=== PATIENT | male | born 1965 | race Caucasian/White ===

== ENCOUNTER 2018-03-27 17:37 | Observation (INO) ==
--- NOTE | 2018-03-27 18:38 | Emergency Department Note ---
Disposition Clinical Impression: Epigastric pain, Atypical chest pain Disposition: Admitted As Inpatient Condition: Serious Referrals: Ric Leal MD [Primary Care Provider] - Forms: ED Satisfaction Letter, Work/School Release Time of Disposition: 22:03 General Adult HPI - General Chief complaint: ED Abdominal Pain Stated complaint: stomach pain Time Seen by Provider: 03/27/18 18:07 Source: patient Limitations: no limitations Nursing Notes Reviewed: Yes Vital Signs Reviewed: Yes - History of Present Illness HPI Narrative: Patient presents today with CC of: Epigastric pain Patient describes issue began around epigastric pain has been going on for 8 days. Patient states it started when he was at a cookout after lunch but did not really eat anything. He has had diarrhea just about every day for the last week. Sometimes he goes as many as 8 times per day. He has had intermittent severe pain in his abdomen that doubles him over according to his . Patient is not drinking alcohol. Patient has about a beer per week. But does not really drink very much patient's not had any sweating vomiting but he has had a fever last Saturday. He is also been having some fatigue. He has not had any blood in his stool. He has a renal transplant which he had done in 1998 both of his remaining kidneys are present. Current kidney transplant is in his right lower quadrant. He has not had any pain down there. Pain is all been in his epigastric area somewhat under the ribs. Patient had toast and peanut butter for lunch this afternoon. He is on multiple medications. 2 months ago they changed his cyclosporine medication otherwise he is on Y Phenytek 2 times a day cyclosporine, prednisone, carvedilol, lisinopril. 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 Patient was taken off Bactrim about 2 months ago. Patient has a history of transverse myelitis which caused him to have decrease sensation on the right side of his abdomen Pain Scale: 5 - Related Data Home Medications Medication Instructions Recorded Confirmed CycloSPORINE, Mod (Neoral) [Neoral] 75 mg PO BID 07/03/17 03/27/18 Mycophenolate Sodium [Myfortic] 720 mg PO BID 07/03/17 03/27/18 PredniSONE [Mari] 3 mg PO DAILY 07/03/17 03/27/18 Carvedilol 12.5 mg PO BID 03/27/18 03/27/18 Lisinopril [Zestril] 10 mg PO DAILY 03/27/18 03/27/18 Allergies Allergy/AdvReac Type Severity Reaction Status Date / Time No Known Allergies Allergy Verified 07/03/17 14:43 All systems ED: reviewed and negative except as stated. Review of Systems: As Per HPI Past Medical History - Past Medical History Medical history: Reports: other Psychiatric history: Reports: no psych history - Social History Smoking Status: Never smoker Smokeless Tobacco Status: No Alcohol use: Reports: rarely Drug use: Reports: none Physical Exam I have reviewed initial and available nurse's notes for the patient. The patient 's medications, allergies, and medical history was reviewed. Family, Social & Surg histories were reviewed and are not relevant except as noted above in the history of present illness, or below in the respective specific section. I have reviewed and agree with all vital signs synchronously available in EMR at the time of this dictation. Times documented are the time of computer entry, are not necessarily the time the event occurred. At least 10 systems reviewed with patient or surrogate during physical exam and are otherwise negative. Physical EXAM: General ~ Constitutional: Conscious & cooperative , generally healthy appearance Head: NCAT Eyes: Sclera white , conjunctiva clear , PERRL, non-icteric ENT : Nose with pink nasal mucosa , nares patent, non tender without bleeding Mouth - mucous membrane moist , pink , no lesions , no trismus Neck - no masses , supple , no cervical spinous process tenderness Pharynx - no exudate , no petechia or obvious lesions , no airway obstruction or stridor Hematologic ~ Lymphatic ~ Immunologic: Lymphadenopathy normal , no petechia , Skin color, nails and pulses unremarkable. Heart ~ Chest: Reg rate , nml Rhythm , nl S1/S2 , no MRG Lungs: Breath sounds equal , clear to auscultation bilaterally , no wheezing, no rales or rhonchi , no CVA tenderness Gastrointestinal ~ Abd: Soft & tender in epigastric area , BS + in 4 quads , No HSM or masses , no peritoneal signs, no rebound no guarding, no tenderness of the right side it renal transplant. GenitoUrinary: Deferred - patient states no pain in the lower abdomen and no genitourinary abnormalities denies testicular pain. Musculoskeletal ~ Back ~ Extremities: Warm and w/o clubbing , cyanosis , or edema. No point tenderness , good ROM of major joints Neurologic: Cranial nerves grossly intact, good muscle strength , attention good , cooperative , Alert and oriented x4 Psychiatric: Calm , Insight and mood appropriate , Skin: No rashes , good skin turgor , cap refill 2-3 seconds , warm and dry - General Limitations: no limitations General appearance: alert, in no apparent distress Course Vital Signs Temperature 97.8 F 03/27/18 18:04 Pulse Rate 66 03/27/18 18:04 Respiratory Rate 18 03/27/18 18:04 Blood Pressure 143/80 03/27/18 18:04 O2 Sat by Pulse Oximetry 100 03/27/18 18:04 Temperature 98.1 F 03/27/18 19:47 Pulse Rate 64 03/27/18 19:47 Respiratory Rate 18 03/27/18 18:04 Blood Pressure 162/78 03/27/18 19:47 O2 Sat by Pulse Oximetry 99 03/27/18 19:47 Oxygen Delivery Oxygen Delivery Room Air Medical Decision Making - MDM Narrative Medical decision making narrative: MDM: History and physical exam is consistent with - atypical CP epigastric pain DDx included multiple etiologies for the symptoms such as - atypical CP, pacreatitis,food poisoning, ACS, Pneumonia, pneumothorax, Gerd, AAA, PE XRAYS: cxr: No Acute CP disease ct scan - no bowel obstruction atrophied [place] kidneys no abnormalities noted on the transplanted kidneys no appendicitis no gallbladder inflammation or evidence of cholecystitis. Critical Care: None Condition and evaluation here was discussed in detail. Labwork, and test results were reviewed with the patient, I also discussed his case as well as medications lab work EKGs with network development coordinator/physician commission auditor at [facility] they did not feel this had anything to do with his renal transplant. I contacted Dr. Hurtado after discussing this with the patient patient is agreeable to admission to the hospital for observation and cardiac enzyme monitoring. Patient may ultimately need stress testing and a GI workup. - Lab Data Result diagrams: 03/27/18 18:50 03/27/18 18:50 Lab Results 03/27/18 03/27/18 03/27/18 Range/Units 18:36 18:50 18:50 WBC 7.2 (4.3-11.1) K/mcL RBC 3.66 L (4.19-5.50) M/mcL Hgb 11.2 L (12.9-16.9) g/dL Hct 33.0 L (37.5-50.1) % MCV 90.2 (83.0-100.0) fL MCH 30.6 (28.0-33.3) pg MCHC 33.9 (31.6-35.5) g/dL RDW 12.7 (11.5-14.5) % Plt Count 279 (140-400) K/mcL MPV 9.7 (9.4-12.4) fL Immature Gran % 0.3 (0-4) % Seg Neutrophils % 58.5 % Lymphocytes % 25.8 % Monocytes % 11.2 % Eosinophils % 3.8 % Basophils % 0.4 % Neutrophils # 4.2 (1.6-8.9) K/mcL Lymphocytes # 1.9 (0.6-4.6) K/mcL Monocytes # 0.8 (0.0-1.3) K/mcL Eosinophils # 0.3 (0.0-0.6) K/mcL Basophils # 0.0 (0.0-0.2) K/mcL Sodium 133 L (136-145) mEq/L Potassium 4.3 (3.5-5.1) mEq/L Chloride 109 H (98-107) mEq/L Carbon Dioxide 18 L (23-29) mEq/L BUN 32 H (6-20) mg/dL Creatinine 1.28 (0.70-1.30) mg/dL Est GFR ( Amer) > 60 (> 60) Est GFR (Non-Af Amer) 59 L (> 60) BUN/Creatinine Ratio 25 (6-26) Glucose 102 (70-105) mg/dL Calculated Osmolality 283 (280-300) Lactic Acid (0.5-2.2) mmol/L Calcium 9.5 (8.6-10.3) mg/dL Total Bilirubin 0.4 (0.3-1.0) mg/dL AST 18 (13-39) Units/L ALT 17 (7-52) Units/L Alkaline Phosphatase 55 (34-104) Units/L Troponin I < 0.03 (< 0.04) ng/mL Serum Total Protein 6.7 (6.4-8.9) g/dL Albumin 3.8 (3.5-5.7) g/dL Globulin 2.9 (2.4-3.5) g/dL Albumin/Globulin Ratio 1.3 (1.1-2.2) Lipase 87 H (11-82) Units/L Urine Color Yellow (Yellow) Urine Clarity Clear (Clear) Urine pH 5.5 (5.0-8.0) pH Units Ur Specific Gary 1.020 (1.010-1.025) Urine Protein 100 H (Neg-Trace) mg/dL Urine Glucose (UA) Normal (Normal) mg/dL Urine Ketones Negative (Negative) mg/dL Urine Blood Negative (Negative) Urine Nitrite Negative (Negative) Urine Bilirubin Negative (Negative) Urine Urobilinogen Normal (Normal) mg/dL Ur Leukocyte Esterase Negative (Negative) Urine Microscopic RBC 0-3 (0-3) per hpf Urine Microscopic WBC 0-3 (0-3) per hpf Urine Bacteria Few (None-Few) per hpf Ur Culture Indicated? NO (NO) 03/27/18 Range/Units 18:50 WBC (4.3-11.1) K/mcL RBC (4.19-5.50) M/mcL Hgb (12.9-16.9) g/dL Hct (37.5-50.1) % MCV (83.0-100.0) fL MCH (28.0-33.3) pg MCHC (31.6-35.5) g/dL RDW (11.5-14.5) % Plt Count (140-400) K/mcL MPV (9.4-12.4) fL Immature Gran % (0-4) % Seg Neutrophils % % Lymphocytes % % Monocytes % % Eosinophils % % Basophils % % Neutrophils # (1.6-8.9) K/mcL Lymphocytes # (0.6-4.6) K/mcL Monocytes # (0.0-1.3) K/mcL Eosinophils # (0.0-0.6) K/mcL Basophils # (0.0-0.2) K/mcL Sodium (136-145) mEq/L Potassium (3.5-5.1) mEq/L Chloride (98-107) mEq/L Carbon Dioxide (23-29) mEq/L BUN (6-20) mg/dL Creatinine (0.70-1.30) mg/dL Est GFR ( Amer) (> 60) Est GFR (Non-Af Amer) (> 60) BUN/Creatinine Ratio (6-26) Glucose (70-105) mg/dL Calculated Osmolality (280-300) Lactic Acid 0.7 (0.5-2.2) mmol/L Calcium (8.6-10.3) mg/dL Total Bilirubin (0.3-1.0) mg/dL AST (13-39) Units/L ALT (7-52) Units/L Alkaline Phosphatase (34-104) Units/L Troponin I (< 0.04) ng/mL Serum Total Protein (6.4-8.9) g/dL Albumin (3.5-5.7) g/dL Globulin (2.4-3.5) g/dL Albumin/Globulin Ratio (1.1-2.2) Lipase (11-82) Units/L Urine Color (Yellow) Urine Clarity (Clear) Urine pH (5.0-8.0) pH Units Ur Specific Gary (1.010-1.025) Urine Protein (Neg-Trace) mg/dL Urine Glucose (UA) (Normal) mg/dL Urine Ketones (Negative) mg/dL Urine Blood (Negative) Urine Nitrite (Negative) Urine Bilirubin (Negative) Urine Urobilinogen (Normal) mg/dL Ur Leukocyte Esterase (Negative) Urine Microscopic RBC (0-3) per hpf Urine Microscopic WBC (0-3) per hpf Urine Bacteria (None-Few) per hpf Ur Culture Indicated? (NO) - EKG Data EKG #1 EKG results narrative: EKG shows normal sinus rhythm with a ventricular rate of 60. ND interval 151. QRS duration 102. QTc 372. Patient has no acute injury pattern he does have some T-wave flattening in aVL and some slightly enlarged T waves in V3 V4 V5. No acute injury pattern is noted. Patient's potassium is normal.
[2018-03-27 18:58] LABS: Basophils % 0.4 %; Eosinophils # 0.3 K/mcL (0.0-0.6); Eosinophils % 3.8 %; Hemoglobin 11.2 g/dL (12.9-16.9); Immature Granulocytes % 0.3 % (0-4); Lymphocytes # 1.9 K/mcL (0.6-4.6); Lymphocytes % 25.8 %; Mean Corpuscular HGB Conc 33.9 g/dL (31.6-35.5); Mean Corpuscular Hemoglobin 30.6 pg (28.0-33.3); Mean Corpuscular Volume 90.2 fL (83.0-100.0); Mean Platelet Volume 9.7 fL (9.4-12.4); Monocytes # 0.8 K/mcL (0.0-1.3); Monocytes % 11.2 %; Neutrophils # 4.2 K/mcL (1.6-8.9); Platelet Count 279 K/mcL (140-400); Red Blood Count 3.66 M/mcL (4.19-5.50); Red Cell Distribution Width 12.7 % (11.5-14.5); Segmented Neutrophils % 58.5 %
[2018-03-27 19:15] LABS: Alanine Aminotransferase 17 Units/L (7-52); Albumin 3.8 g/dL (3.5-5.7); Albumin/Globulin Ratio 1.3 (1.1-2.2); Alkaline Phosphatase 55 Units/L (34-104); Aspartate Amino Transferase 18 Units/L (13-39); BUN/Creatinine Ratio 25 (6-26); Bilirubin,Total 0.4 mg/dL (0.3-1.0); Blood Urea Nitrogen 32 mg/dL (6-20); Calcium 9.5 mg/dL (8.6-10.3); Carbon Dioxide 18 mEq/L (23-29); Chloride 109 mEq/L (98-107); Globulin 2.9 g/dL (2.4-3.5); Glucose 102 mg/dL (70-105); Lipase 87 Units/L (11-82); Osmolality,Calculated 283 (280-300); Potassium 4.3 mEq/L (3.5-5.1); Sodium 133 mEq/L (136-145); Total Protein 6.7 g/dL (6.4-8.9); eGFR For African Americans > 60 (> 60); eGFR For Non-African Americans 59 (> 60)
[2018-03-27 19:21] LABS: Troponin I < 0.03 ng/mL (< 0.04)
[2018-03-27 20:36] LABS: Bilirubin,Urine Negative (Negative); Blood,Urine Negative (Negative); Clarity,Urine Clear (Clear); Color,Urine Yellow (Yellow); Glucose,Urine (UA) Normal (Normal); Ketones,Urine Negative (Negative); Leukocyte Esterase,Urine Negative (Negative); Nitrite,Urine Negative (Negative); PH,Urine 5.5 pH Units (5.0-8.0); Protein,Urine 100 mg/dL (Neg-Trace); Urobilinogen,Urine Normal (Normal)
[2018-03-27 20:38] LABS: Bacteria,Urine Few per hpf (None-Few); RBC,Urine 0-3 per hpf (0-3); WBC,Urine 0-3 per hpf (0-3)
[2018-03-27] MEDS ORDERED: Naloxone 0.4 MG/ML INJ IVP PRN (22:21)
[2018-03-28] MEDS: Aspirin 81 MG TAB.CHEW PO SCH ×2 (00:22→09:21)
[2018-03-28 04:32] LABS: Basophils % 0.5 %; Eosinophils # 0.3 K/mcL (0.0-0.6); Eosinophils % 4.6 %; Hematocrit 30.3 % (37.5-50.1); Hemoglobin 10.4 g/dL (12.9-16.9); Immature Granulocytes % 0.4 % (0-4); Lymphocytes # 1.6 K/mcL (0.6-4.6); Lymphocytes % 28.2 %; Mean Corpuscular HGB Conc 34.3 g/dL (31.6-35.5); Mean Corpuscular Hemoglobin 30.2 pg (28.0-33.3); Mean Corpuscular Volume 88.1 fL (83.0-100.0); Mean Platelet Volume 9.1 fL (9.4-12.4); Monocytes # 0.7 K/mcL (0.0-1.3); Platelet Count 232 K/mcL (140-400); Red Blood Count 3.44 M/mcL (4.19-5.50); Red Cell Distribution Width 12.5 % (11.5-14.5); Segmented Neutrophils % 53.3 %
[2018-03-28 04:52] LABS: BUN/Creatinine Ratio 25 (6-26); Blood Urea Nitrogen 31 mg/dL (6-20); Carbon Dioxide 19 mEq/L (23-29); Chloride 112 mEq/L (98-107); Chol/HDL Ratio 4.5 (0-4.9); Cholesterol 145 mg/dL (< 200); Glucose 102 mg/dL (70-105); HDL Cholesterol 32 mg/dL (40-59); LDL Cholesterol,Calculated 88 mg/dL (0-99); Osmolality,Calculated 289 (280-300); Sodium 136 mEq/L (136-145); Triglycerides 126 mg/dL (< 150); eGFR For African Americans > 60 (> 60); eGFR For Non-African Americans > 60 (> 60)
[2018-03-28 07:16] VITALS: BP 125/68
[2018-03-28] MEDS ORDERED: Mycophenolate Sodium (DR) 180 MG TABLET.DR PO SCH (07:30)
[2018-03-28] MEDS ORDERED: predniSONE 1 MG TABLET PO SCH (09:00)
[2018-03-28] MEDS ORDERED: Aspirin 81 MG TAB.CHEW PO SCH (09:00)
[2018-03-28] MEDS ORDERED: CycloSPORINE, Mod (Neoral) 25 MG CAPSULE PO SCH (09:00)
--- NOTE | 2018-03-28 11:38 | Internal Med History&Physical ---
Date of Encounter: 03/28/18 Time of Encounter: 11:32 Assessment and Plan (1) Epigastric pain Current visit: Yes Status: Acute Patient was admitted with epigastric pain for rule out CO. Patient has had several days of pain to his epigastric area and has stated diarrhea for the past few weeks. Patient states that he has had watery stools 3-5 times daily. Patient denies any fever or chills. Patient states occasional nausea, but denies any vomiting. Denies any blood in the stool. Denies any dizziness, palpitations or dyspnea. Denies any actual chest pain. Patient is been on pvc monitor and has shown sinus rhythm with no ectopy. EKG was reviewed which was negative. Patient's troponin 2 which have been negative. Labs reviewed with no acute issues except for a slight elevation in lipase at 89. Patient states he does have a gallbladder. We will continue to monitor patient. Will discuss with Dr. Hurtado. (2) Renal transplant recipient Current visit: Yes Status: Chronic No acute issues. Patient had kidney transplant 19 years ago. Patient said several adjustments in medications over the past few years, but states no known issues and that his labs have been stable over the past several years. Patient states he continues with annual follow-ups at renal transplant clinic and maintains frequent telephone contact with this clinic. (3) HTN (hypertension) Current visit: Yes Status: Chronic Vital signs stable. We will continue with current medications. Qualifiers: Hypertension type: essential hypertension Qualified Code(s): I10 - Essential (primary) hypertension Internal Medicine - H&P: HPI Chief complaint: epigastric pain Admitted From: Home Plans for Post Hospital Care: Home History of present illness: Mr. Salgado is a 52 year old male, who describes issue began around epigastric pain has been going on for 8 days. He has had diarrhea just about every day for the last week. Sometimes he goes as many as 8 times per day. He has had intermittent severe pain in his abdomen that doubles him over according to his . He has had a fever last Saturday. He is also been having some fatigue from long hours at work and relates high amount of stress between work and home recently. He has not had any blood in his stool. He has a renal transplant which he had done in 1998 both of his remaining kidneys are present. Current kidney transplant is in his right lower quadrant and has not had any pain down there. Pain is all been in his epigastric area somewhat under the ribs. He is on multiple medications. 2 months ago they changed his cyclosporine medication otherwise he is on Y Phenytek 2 times a day cyclosporine, prednisone, carvedilol , lisinopril. Patient was taken off Bactrim about 2 months ago. Patient has a history of transverse myelitis which caused him to have decrease sensation on the right side of his abdomen Patient was admitted to this unit and has stated that his epigastric pain has diminished since admission, but does remain. Patient has had 2 troponins which have been negative. EKG showed no ischemic changes. Patient's lipase was slightly elevated at 89. Patient states that he still has his gallbladder. Denies any nausea and has been eating a diet. He has been on pvc monitor was sinus rhythm with no ectopy. Past Med Surg Social Fam HX - Past Medical History Medical history: other Additional medical history: Transverse Mylitis Psychiatric history: no psych history - Past Surgical History Additional surgical history: kidney transplant, cord decompression - Social History Smoking Status: Never smoker Smokeless Tobacco Status: Yes (Quit 3.5 years ago) Alcohol use: rarely Drug use: none Internal Medicine - H&P: Meds CycloSPORINE, Mod (Neoral) [Neoral] 50 mg PO BID 07/03/17 [History] Mycophenolate Sodium [Myfortic] 720 mg PO BID 07/03/17 [History] PredniSONE [Mari] 3 mg PO DAILY 07/03/17 [History] Carvedilol 12.5 mg PO BID 03/27/18 [History] Lisinopril [Zestril] 10 mg PO DAILY 03/27/18 [History] 3 Allergy/AdvReac Type Severity Reaction Status Date / Time No Known Allergies Allergy Verified 07/03/17 14:43 All Systems PM: A 10-system review of systems was performed and is negative for pertinent findings except as documented above in the HPI. - Constitutional Constitutional: as per HPI, no chills, no fever(s), no night sweats - EENT Eyes: as per HPI, no change in vision, no discharge, no pain, no photophobia Ears: no ear discharge, no ear pain, no tinnitus Nose, mouth and throat: no dysphagia, no nasal discharge, no neck pain, no sore throat - Cardiovascular Cardiovascular ROS IM: as per HPI, no chest pain, no diaphoresis, no dyspnea, no lightheadedness, no palpitations, no syncope - Respiratory Respiratory: as per HPI, no cough, no dyspnea, no wheezing, no excessive phlegm production - Gastrointestinal Gastrointestinal: no abdominal pain, no diarrhea, no hematemesis, no hematochezia, no melena, no nausea, no vomiting - Musculoskeletal Musculoskeletal ROS IM: no numbness, no tingling - Integumentary Integumentary IM: no rash, no unusual bruising - Neurological Neurological ROS: no confusion, no convulsions, no focal weakness, no numbness, no tingling, no tremor(s) - Hematologic/Lymphatic Hematologic/Lymphatic: no easy bruising - Constitutional Vitals: Temp Pulse Resp BP Pulse Ox 98.3 F 74 18 125/68 98 03/28/18 07:11 03/28/18 07:11 03/28/18 07:11 03/28/18 07:11 03/28/18 07:11 - Head Head exam: Present: atraumatic, normocephalic - Eye Eye exam: Present: PERRL, conjuntiva pink, sclera anicteric Pupils: Present: PERRL - Neck Neck exam general surgery: Present: supple, trachea midline. Absent: lymphadenopathy - Respiratory Respiratory exam: Present: CTAB. Absent: accessory muscle use, rales, rhonchi, wheezes - Cardiovascular Cardiovascular exam: Present: RRR, +S1, +S2. Absent: diastolic murmur, gallop, rubs, systolic murmur - GI/Abdominal GI/Abdominal exam: Present: normal bowel sounds, soft, no peritoneal signs. Absent: distended, tenderness - Extremities Exam Extremities exam: Present: warm, radial pulses palpable and symmetrical. Absent : calf tenderness, cyanotic, pedal edema - Neurological Exam Neurological exam: Present: CN II-XII intact, oriented X3, no focal deficits. Absent: pronater drift, facial droop, speech deficit - Skin Skin exam: Present: dry, intact Internal Med - H&P Results - Labs CBC & Chem 7: 03/28/18 04:27 03/28/18 04:27 Labs: Short CBC 03/28/18 Range/Units 04:27 WBC 5.6 (4.3-11.1) K/mcL Hgb 10.4 L (12.9-16.9) g/dL Hct 30.3 L (37.5-50.1) % Plt Count 232 (140-400) K/mcL Neutrophils # 3.0 (1.6-8.9) K/mcL BMP 03/28/18 04:27 Sodium 136 Potassium 4.0 Chloride 112 H Carbon Dioxide 19 L BUN 31 H Creatinine 1.26 Glucose 102 Calcium 9.0 Cardiac Enzymes 03/28/18 03/28/18 Range/Units 04:27 10:43 Troponin I < 0.03 < 0.03 (< 0.04) ng/mL - VTE Documentation of Mechanical Device: Intermittent pneumatic compression device
--- NOTE | 2018-03-28 14:58 | Discharge Summary ---
- NOTES TO OUTPATIENT PROVIDER Notes to Outpatient Provider: Feel patient needs stress test to verify epigastric nature of what is presumed to be asked reflux disease. Also, follow- up for elevated lipase with no abnormalities by CT scan. Also, has lowering of blood count which is new for this patient, status post renal transplant. Date of Encounter: 03/28/18 Time of Encounter: 14:56 - Discharge Diagnosis (1) Epigastric pain Priority: Primary Status: Acute Comments: Have instructed patient that he needs a stress test, as an outpatient. Will prescribe antacid in the form of Zantac for a minimum of 2 weeks, a one-month preferred. Patient has been instructed to reach turn to emergency room if recurs or not quickly responsive to Tums. (2) HTN (hypertension) Priority: Secondary Status: Chronic Comments: Clinically stable. We will continue home regimen and follow. Qualifiers: Hypertension type: essential hypertension Qualified Code(s): I10 - Essential (primary) hypertension (3) Renal transplant recipient Priority: Secondary Status: Chronic Comments: Patient follows well with his medicinal chemist, Dr. Leal. Will ask that he be informed of our findings, here. Hospital course: Mr. Salgado is a 52 year old male who had epigastric pain of atypical etiology for 2-8 days, depending upon his history. He also had loose stool. There was no radiation to the chest or arm or neck. Because he has been under a lot of stress at work, he was advised that he undergo outpatient stress testing and that he be placed on Zantac, twice a day until stress testing is obtained. - Time Spent with Patient Total time spent providing and/or coordinating discharge services: - Discharge Medications Home Medications: CycloSPORINE, Mod (Neoral) [Neoral] 50 mg PO BID 07/03/17 [History] Mycophenolate Sodium [Myfortic] 720 mg PO BID 07/03/17 [History] PredniSONE [Mari] 3 mg PO DAILY 07/03/17 [History] Carvedilol 12.5 mg PO BID 03/27/18 [History] Lisinopril [Zestril] 10 mg PO DAILY 03/27/18 [History] Allergies/Adverse Reactions: 3 Allergy/AdvReac Type Severity Reaction Status Date / Time No Known Allergies Allergy Verified 07/03/17 14:43 Date of admission: 03/27/18 22:56 Primary care physician: Ludwin Discharging clinician: Sebastian Hurtado Anticipated date of discharge: 03/28/18 - Constitutional Vitals: Temp Pulse Resp BP Pulse Ox 98.3 F 74 18 125/68 98 03/28/18 07:11 03/28/18 07:11 03/28/18 07:11 03/28/18 07:11 03/28/18 07:11 Exam: Please see H&P this date. - Patient Status Disposition: Home, Self-Care Condition: Serious Functional capacity at discharge: independent ambulation Overall status at discharge: patient is progressing back to baseline - Discharge Instructions Follow Up With: Ric Leal MD [Primary Care Provider] - - VTE Documentation of Mechanical Device: Intermittent pneumatic compression device
--- NOTE | 2018-03-28 18:11 | Electrocardiograph Report ---
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
== END 2018-03-28 16:00 | disposition home or self-care (01) ==
LOC: INPGRE 17:37 → EMEROOGRE 17:37 → INPGRE 23:08